=== PATIENT | male | born 1975 | race Asian ===

== ENCOUNTER 2019-08-27 17:35 | Emergency (ER) | payer SELFPAY ==
[~2019-08-27] VITALS: Ht 170.2 cm; Wt 65.0 kg
[2019-08-27 21:50] VITALS: BP 119/80
== END 2019-08-27 22:08 | disposition home or self-care (01) ==
LOC: ER 17:35
DX: R50.9 Fever, unspecified (principal)
CPT/HCPCS: 87070; 87430; 87804; 99283